=== PATIENT | male | born 1945 | race African-American/Black ===

== ENCOUNTER 2021-04-16 09:21 | Outpatient (CLI) | payer OTHER | END 2021-04-16 09:22 | disposition home or self-care (01) | LOC: MRI 09:21 | PROVIDERS: ATTEND Nurse Practitioner Family | DX: M47.22 Other spondylosis with radiculopathy, cervical region (principal) | CPT/HCPCS: 72141 ==

== ENCOUNTER 2021-08-30 12:57 | Outpatient (CLI) | payer OTHER ==
[~2021-08-30 12:57] MED LIST: Iopamidol 370 76% 100 ML VIAL ONE
== END 2021-08-30 12:58 | disposition home or self-care (01) ==
LOC: CT 12:57
DX: R63.4 Abnormal weight loss (principal); R10.9 Unspecified abdominal pain; E27.8 Other specified disorders of adrenal gland; K31.89 Other diseases of stomach and duodenum; I70.8 Atherosclerosis of other arteries; M89.9 Disorder of bone, unspecified
CPT/HCPCS: 74177; Q9967

== ENCOUNTER 2021-09-14 08:45 | Outpatient (CLI) | payer OTHER | END 2021-09-14 08:46 | disposition home or self-care (01) | LOC: PET 08:45 | PROVIDERS: ATTEND Internal Medicine Hematology & Oncology | DX: C34.01 Malignant neoplasm of right main bronchus (principal); C34.92 Malignant neoplasm of unspecified part of left bronchus or lung; C79.9 Secondary malignant neoplasm of unspecified site; N28.89 Other specified disorders of kidney and ureter | CPT/HCPCS: 78815; A9552 ==

== ENCOUNTER 2021-10-23 12:31 | Outpatient (CLI) | payer OTHER | END 2021-10-23 12:32 | disposition home or self-care (01) | LOC: TBSIIMAG 12:31 | PROVIDERS: ATTEND Radiology Radiation Oncology | DX: C34.90 Malignant neoplasm of unspecified part of unspecified bronchus or lung (principal); C79.31 Secondary malignant neoplasm of brain; G93.89 Other specified disorders of brain | CPT/HCPCS: 70553 ==

== ENCOUNTER 2021-10-30 18:16 | Inpatient (IN) | payer OTHER ==
[~2021-10-30 18:16] MED LIST changes: -Iopamidol 370 76% 100 ML VIAL ONE; +Iopamidol-370 76% 500 ML 1 ML ONE
[2021-10-30 18:41] LABS: #Lymphocytes 0.4 thou/uL (1.20-3.40); #Monocytes 0.8 thou/uL (0.11-0.59); #Neutrophils 8.2 thou/uL (1.40-6.50); %Eosinophils 0.1 % (0.0-10.0); %Lymphocytes 4.3 % (21.0-51.0); %Monocytes 8.1 % (0.0-10.0); %Neutrophils 87.5 % (42.0-75.0); Hemoglobin 9.6 g/dL (14.0-18.0); Mean Corpuscular HGB CONC 32.3 g/dL (32.0-36.0); Mean Corpuscular Hemoglobin 26.4 pg (27.0-31.0); Mean Corpuscular Volume 81.8 fL (78.0-98.0); Mean Platelet Volume 8.3 fL (7.4-10.4); Platelet Count 537 thou/uL (130-400); RBC Distribution Width 19.7 % (11.5-14.5); Red Blood Cell (RBC) Count 3.61 mill/uL (4.70-6.10); White Blood Cell (WBC) Count 9.4 thou/uL (4.8-10.8)
[2021-10-30 18:59] LABS: PTT 38.1 sec (22.9-36.1)
[2021-10-30 19:00] LABS: INR-International Normal Ratio 1.3; Prothrombin Time 15.9 sec (12.0-14.7)
[2021-10-30 19:01] LABS: D-Dimer Test 1.41 *mcg/mL (0.27-0.43)
[2021-10-30 19:03] LABS: ALT (SGPT) 29 U/L (8-55); AST (SGOT) 39 U/L (5-34); Albumin 3.3 g/dL (3.4-4.8); Alkaline Phosphatase 264 U/L (40-110); Anion Gap 17 mmol/L (10-20); BUN (Urea Nitrogen) 24 mg/dL (8.4-25.7); Bilirubin, Total 0.7 mg/dL (0.2-1.2); CK (CPK) 49 U/L (30-200); Calc. Creatinine Clearance 0 mL/min (70-130); Calcium 10.1 mg/dL (7.8-10.44); Carbon Dioxide 21 mmol/L (23-31); Chloride 104 mmol/L (98-107); Estimated GFR 91; Globulin 3.1 g/dL (2.4-3.5); Glucose 91 mg/dL (83-110); Potassium 4.6 mmol/L (3.5-5.1); Protein, Total 6.4 g/dL (5.8-8.1); Sodium 137 mmol/L (136-145)
[2021-10-30 19:18] LABS: Bacteria/HPF 4+ HPF (None Seen); Bilirubin Negative (Negative); Blood, Urine Negative (Negative); Clarity Turbid (Clear); Glucose, Urine (Dipstick) 30 mg/dL (Negative); Ketone, Urine 10 mg/dL (Negative); Leukocyte Negative Leu/uL (Negative); Nitrite Negative (Negative); Protein, Urine (Dipstick) 100 mg/dL (Neg-Trace); RBC/HPF 0-3 HPF (0-3); Specific Gravity, Urine 1.022 (1.002-1.036); Squamous Epithelial 0-3 HPF (0-3); pH, Urine 5.5 (5.0-9.0)
[2021-10-30] MEDS ORDERED: Vancomycin 1 GM/200 ML BAG ONE (19:28)
[2021-10-30] MEDS ORDERED: Piperacillin/Tazobactam 4.5 GM VIAL ONE (19:28)
[2021-10-30 19:43] LABS: CKMB 1.8 ng/mL (0-6.6)
[2021-10-30 20:25] LABS: SARS-CoV-2 NAA Rapid Test Not Detected (NotDetected)
[2021-10-30 21:52] LABS: Lactic Acid 2.8 mmol/L (0.5-2.2)
[2021-10-30] MEDS ORDERED: Ondansetron PF 4 MG/2 ML Vial IVP PRN (22:05)
[2021-10-30] MEDS ORDERED: Bisacodyl 10 MG SUPP PR PRN (22:05)
[2021-10-30] MEDS ORDERED: Bisacodyl 5 MG TAB PO PRN (22:05)
[2021-10-30] MEDS ORDERED: Acetaminophen 325 MG TAB PO PRN (22:05)
[2021-10-30] MEDS ORDERED: Senokot S 8.6-50 MG TAB PO PRN (22:05)
[2021-10-30] MEDS ORDERED: cefTRIAXone\\ROCEPHIN 2 GM in Sodium Chloride 0.9% 100 ML IVPB SCH (22:30)
[2021-10-30] MEDS ORDERED: Azithromycin 500 MG in Sodium Chloride 0.9% 250 ML 250 ML IVPB SCH (23:00)
[2021-10-30] MEDS ORDERED: NOREPINEPHRINE 8 MG/250 ML-D5W 250 ML IVPB SCH (23:30)
[2021-10-31] MEDS: Sodium Chloride 0.9% 1,000 ML IV SCH ×2 (01:01→10:34)
[2021-10-31 01:22] VITALS: BMI 16.4
[2021-10-31 03:25] LABS: Legionella Urinary Ag Negative (Negative); Strep pneumo Urine Ag NEGATIVE (NEGATIVE)
[2021-10-31 04:56] LABS: #Lymphocytes 0.6 thou/uL (1.20-3.40); #Monocytes 0.8 thou/uL (0.11-0.59); #Neutrophils 7.9 thou/uL (1.40-6.50); %Basophils 0.1 % (0.0-1.0); %Eosinophils 0.1 % (0.0-10.0); %Lymphocytes 6.4 % (21.0-51.0); %Monocytes 8.4 % (0.0-10.0); Hemoglobin 9.4 g/dL (14.0-18.0); Mean Corpuscular HGB CONC 32.2 g/dL (32.0-36.0); Mean Corpuscular Hemoglobin 26.4 pg (27.0-31.0); Mean Corpuscular Volume 82.1 fL (78.0-98.0); Mean Platelet Volume 8.6 fL (7.4-10.4); Platelet Count 476 thou/uL (130-400); RBC Distribution Width 19.5 % (11.5-14.5); Red Blood Cell (RBC) Count 3.54 mill/uL (4.70-6.10); White Blood Cell (WBC) Count 9.3 thou/uL (4.8-10.8)
[2021-10-31 04:57] LABS: Reticulocyte Count 2.6 % (0.5-1.5)
[2021-10-31 05:44] LABS: Anion Gap 17 mmol/L (10-20); BUN (Urea Nitrogen) 25 mg/dL (8.4-25.7); Calc. Creatinine Clearance 53 mL/min (70-130); Calcium 9.5 mg/dL (7.8-10.44); Carbon Dioxide 20 mmol/L (23-31); Cardiac Risk 3.6 (Less than 4.5); Chloride 104 mmol/L (98-107); Cholesterol 133 mg/dl (< 200 Desired); Estimated GFR 91; Glucose 98 mg/dL (83-110); HDL Cholesterol 37 mg/dL (>60 Neg Risk); Iron 26 ug/dL (65-175); Iron Binding Capacity, Total 193 mcg/dL (261-462); LDL Cholesterol, Calculated 82 mg/dL; Magnesium 1.9 mg/dL (1.6-2.6); Potassium 4.6 mmol/L (3.5-5.1); Sodium 136 mmol/L (136-145); Triglycerides 70 mg/dL (Less than 150)
[2021-10-31 05:47] LABS: ALT (SGPT) 30 U/L (8-55); AST (SGOT) 37 U/L (5-34); Alkaline Phosphatase 253 U/L (40-110); Bilirubin, Direct 0.2 mg/dL (0.1-0.3); Bilirubin, Total 0.3 mg/dL (0.2-1.2); Protein, Total 5.9 g/dL (5.8-8.1)
[2021-10-31 05:57] LABS: Hemoglobin A1c 4.7 % (4.0-6.0)
[2021-10-31] MEDS ORDERED: Enoxaparin Sodium 40 MG/0.4 ML SYRINGE SC SCH (09:00)
[2021-10-31 10:16] LABS: Free T4 (Free Thyroxine) 0.74 ng/dL (0.70-1.48)
[2021-10-31 10:27] LABS: SARS-CoV-2 NAA Rapid Test Not Detected (NotDetected)
[2021-10-31] MEDS ORDERED: Dextrose 5 %-0.45 % NaCl 1,000 ML IV SCH (12:15)
[2021-10-31 12:30] VITALS: TEMP 97.6
[2021-10-31] MEDS ORDERED: fentaNYL Citrate/PF 100 MCG/2 ML SYRINGE ONE (16:26)
[2021-10-31] MEDS ORDERED: Phenylephrine 10 MG/ML VIAL ONE (16:27)
[2021-10-31] MEDS ORDERED: Norepinephrine 4 MG/4 ML VIAL ONE (16:27)
[2021-10-31 16:35] VITALS: BP 117/82
[2021-10-31] MEDS ORDERED: Bupivacaine HCl 0.5%/Epinephrine 1:200,000/PF 30 ml Vial ONE (16:40)
[2021-10-31] MEDS ORDERED: Lidocaine 1% MPF 2 ML VIAL ONE (16:46)
[2021-10-31] MEDS ORDERED: PROPOFOL 200 MG/20 ML VIAL ONE (16:46)
[2021-10-31] MEDS ORDERED: Sodium Bicarb 50 MEQ/50 ML Abboject 8.4% SYRINGE ONE (16:46)
[2021-10-31] MEDS ORDERED: Calcium Chloride 1 GM/10 ML Abboject SYRINGE ONE (16:46)
[2021-10-31] MEDS ORDERED: EPINEPHrine 1 MG/ML AMP ONE (16:46)
[2021-10-31] MEDS ORDERED: Cardioplegic Soln 1,000 ML BAG ONE (16:46)
[2021-10-31] MEDS ORDERED: SUGAMMADEX SODIUM 200 MG/2 ML VIAL ONE (17:11)
[2021-11-01] MEDS ORDERED: PALONOSETRON HCL 0.05 MG/ML 5 ML VIAL IVP SCH (06:00)
[2021-11-01] MEDS ORDERED: Amino Acids 4.25 %/Dextrose 5% 1,000 ML IV SCH (06:00)
[2021-11-01] MEDS ORDERED: ETOPOSIDE IVPB SCH (06:00)
[2021-11-01] MEDS ORDERED: CARBOPLATIN IVPB SCH (06:00)
[2021-11-01] MEDS ORDERED: SODIUM CHLORIDE 0.9% IVPB SCH ×2 (06:00)
[2021-11-01] MEDS ORDERED: Dexamethasone 10 MG in Sodium Chloride 0.9% 50 ML IVPB SCH (06:00)
[2021-11-01] MEDS ORDERED: Enoxaparin Sodium 30 MG/0.3 ML SYRINGE SC SCH (09:00)
[2021-11-04] MEDS ORDERED: PEGFILGRASTIM-JMDB 6 MG/0.6 ML SYRINGE SQ SCH (06:00)
[2021-11-06 13:58] LABS: Actual Bicarbonate (HCO3v) 28 mEq/L (22-28); Analyzer IN Cardio OR; Base Excess -0.9 mEq/L (-2.0 to +3.0); Calcium, Ionized (venous) 1.41 mmol/L (1.16-1.32); Chloride (VBG) 103 mmol/L (98-106); Hemoglobin (Hb) 9.9 g/dL (12.6-17.4); Sodium 139.6 mmol/L (133-146)
[2021-11-06 13:59] LABS: pH (venous) 7.19 (7.32-7.43)
== END 2021-10-31 17:45 | disposition expired | DRG 163 ==
LOC: ERS 18:16 → ERHOLD 22:09 → CCU 10-31 00:44 → MSONC 10-31 12:14
PROVIDERS: ADMIT Family Medicine; ATTEND Internal Medicine
PROC: 3E033XZ Introduction of Vasopressor into Peripheral Vein, Percutaneous Approach (ICD-10-PCS; principal; 2021-10-30)
PROC: 0W9D0ZZ Drainage of Pericardial Cavity, Open Approach (ICD-10-PCS; 2021-10-31)
PROC: 3E0333Z Introduction of Anti-inflammatory into Peripheral Vein, Percutaneous Approach (ICD-10-PCS; 2021-10-31)
DX: C34.92 Malignant neoplasm of unspecified part of left bronchus or lung (principal); A41.9 Sepsis, unspecified organism; E43 Unspecified severe protein-calorie malnutrition; R65.21 Severe sepsis with septic shock; J96.01 Acute respiratory failure with hypoxia; J18.9 Pneumonia, unspecified organism; N39.0 Urinary tract infection, site not specified; Z68.1 Body mass index [BMI] 19.9 or less, adult; I31.3 Pericardial effusion (noninflammatory); I31.4 Cardiac tamponade; E78.5 Hyperlipidemia, unspecified; Z20.822 Contact with and (suspected) exposure to COVID-19; D64.9 Anemia, unspecified; R79.89 Other specified abnormal findings of blood chemistry; F41.9 Anxiety disorder, unspecified; F32.A Depression, unspecified; F17.210 Nicotine dependence, cigarettes, uncomplicated; R13.12 Dysphagia, oropharyngeal phase; R77.8 Other specified abnormalities of plasma proteins; F43.10 Post-traumatic stress disorder, unspecified; Z90.79 Acquired absence of other genital organ(s); Z90.49 Acquired absence of other specified parts of digestive tract
CPT/HCPCS: 36415; 71045; 71275; 76770; 77300; 77301; 77338; 80048; 80053; 80061; 80076; 81003; 81015; 82550; 82553; 82728; 83036; 83540; 83550; 83605; 83735; 83880; 84439; 84443; 84481; 84484; 85025; 85046; 85379; 85610; 85730; 86140; 87040; 87070; 87081; 87086; 87205; 87449; 87899; 88112; 88305; 93005; 93306; 93970; 96365; 96375; J0171; J0456; J0696; J1650; J2370; J2543; J2704; J3370; J3490; J7042; J7050; Q9967; U0002